=== PATIENT | male | born 1945 | race Caucasian/White ===

== ENCOUNTER 2016-08-07 10:27 | Emergency (ER) | payer OTHER ==
--- NOTE | 2016-08-07 11:18 | EDPHY ---
H & P Time Seen by Provider: 08/07/16 10:53 HPI/ROS: CHIEF COMPLAINT: rib pain HISTORY OF PRESENT ILLNESS: Patient is a 70-year-old male who presents to the emergency department with multiple rib fractures from 10 days ago. Patient states he slipped and fell landing on his ribs. He had an x-ray which showed fractures right posterior lateral 5 through 10. Patient was being managed by his primary care physician Dr. Becerra as an outpatient. He is currently taking Percocet . His primary care physician cm in the emergency department today for potential nerve block. Patient states he is active. He is able to go to work regularly. He continues to have pain from the fracture. He feels the pain medicine is not working. He has had no cough or shortness of breath. No fevers or chills. REVIEW OF SYSTEMS: My complete review of systems is negative except as mentioned in the HPI. Past Medical/Surgical History: Includes polycythemia Smoking Status: Never smoked Physical Exam: Vitals noted GENERAL: Well-appearing, in no acute distress, alert. Patient is able to get up from his bed. He walks about easily. He can bend over in the room and stand up straight without significant difficulty. HEENT: Eyes normal to inspection, normal pharynx, no signs of dehydration. NECK: No thyromegaly, no lymphadenopathy, supple. RESPIRATORY: Clear to auscultation bilaterally, no rales, rhonchi or wheezing. Right posterior chest/back with tenderness to palpation. No crepitus. No deformity. CVS: Regular rate and rhythm, no rubs, murmurs, or gallops. ABDOMEN: Soft, nontender, nondistended, no organomegaly. Benign BACK: Normal to inspection, no CVA tenderness. No spinal tenderness SKIN: Normal color, no rash, warm, dry. No pallor. EXTREMITIES: No pedal edema, no calf tenderness, no Homans sign or cords, no joint swelling. NEURO/PSYCH: [Alert and oriented, normal mood and affect, normal motor sensory exam. Constitutional: Initial Vital Signs Temperature (C) 37.1 C 08/07/16 10:30 Heart Rate 66 08/07/16 10:30 Respiratory Rate 16 08/07/16 10:30 Blood Pressure 119/87 H 08/07/16 10:30 O2 Sat (%) 96 08/07/16 10:30 O2 Delivery Mode Room Air Allergies/Adverse Reactions: No Known Allergies Allergy (Unverified 07/10/09 15:00) Home Medications: Medication Instructions Recorded Oxycodone HCl [Oxyir] 1 - 2 tab PO Q4 #17 capsule 08/07/16 Medical Decision Making ED Course/Re-evaluation: Of note I discussed the case with Dr. denisse luong prior to the patient's arrival. He was requesting possible admission versus nerve block. He states the patient was failing outpatient treatment. Per the patient, he is able to go to work daily. He moves about but he continues to have pain. He feels as though the pain medication was not strong enough. Dr. Becerra told him there was no stronger home pain medication. I discussed the case with Dr. Pascual from General surgery. He states the nerve block will only give short-term relief. After discussing this patient and the patient's ability to move and function he does not feel nerve block is appropriate. I agree with this assessment. I discussed options with the patient. He does not want admission. I explained that he will have significant pain from his rib fractures. These will take 6-8 weeks to heal. Patient was given Oxy IR prescription to treat his pain. He also take ibuprofen. He was given an incentive spirometer and instructions on use. Differential Diagnosis: My differential includes but is not limited to rib fracture, pneumothorax, hemothorax, pneumonia, bronchitis Departure - Departure Disposition: Home, Routine, Self-Care Clinical Impression: Rib pain on right side, Multiple right-sided rib fractures Condition: Good Instructions: Rib Fracture (ED) Additional Instructions: Continue to take your pain medications prescribed by your primary care physician. Use the medications prescribed today in addition to the pain medications you already have. Referrals: Devon Becerra MD [Primary Care Provider] - 3-4 days, if not improved Prescriptions: Oxycodone HCl [Oxyir] 1 - 2 tab PO Q4 #17 capsule
[2016-08-07 13:04] VITALS: BP 164/77; PULSE 57; RESP 18; TEMP 97.5; O2SAT 95
--- NOTE | 2016-08-07 13:48 | DX ---
Chest, Two Views at 1105 hours on August 07, 2016 History: Right rib pain, recent fall. Comparison: July 30, 2016. Findings: Cardiac silhouette is within normal range. Patchy opacity in the left lower lobe probably r epresenting scarring. Minimally displaced fractures of the right fifth through tenth ribs similar to recent study. No pneumothorax. Syndesmophytes in the thoracic spine consistent with diffuse idiopathi c skeletal hyperostosis. IMPRESSION: 1. Multiple minimally displaced right rib fractures. 2. No pneumothorax. 3. Left lower lobe pleural parenchymal scarring.
== END 2016-08-07 13:04 | disposition home or self-care (01) ==
DX: S22.41XD Multiple fractures of ribs, right side, subsequent encounter for fracture with routine healing (principal); W01.0XXD Fall on same level from slipping, tripping and stumbling without subsequent striking against object, subsequent encounter